=== PATIENT | female | born 1980 | race Two or more races ===

== ENCOUNTER 2022-02-28 10:09 | Emergency (ER) | payer MEDICAID ==
[~2022-02-28] VITALS: Ht 175.3 cm; Wt 86.2 kg
[2022-02-28] MEDS ORDERED: ONDANSETRON HCL/PF 4 MG/2 ML VIAL IVP ONE (10:30)
[2022-02-28] MEDS ORDERED: HYDROMORPHONE INJ 2 MG/ML DISP.SYRIN IV ONE (10:30)
[2022-02-28] MEDS ORDERED: PANTOPRAZOLE 40 MG VIAL IV ONE (10:30)
[2022-02-28] MEDS ORDERED: IV NS 0.9% 1,000 ML BAG IV ONE (10:30)
[2022-02-28] MEDS ORDERED: ONDANSETRON HCL/PF 4 MG/2 ML VIAL ONE (10:44)
[2022-02-28] MEDS ORDERED: HYDROMORPHONE 1 MG/1 ML DISP.SYRIN ONE (10:44)
[2022-02-28] MEDS ORDERED: PANTOPRAZOLE 40 MG VIAL ONE (10:44)
--- NOTE | 2022-02-28 10:45 | NUR ---
RECEVED PT 41YRS FEMALE CAME BY BLAYNE C/O ABDOMINAL PAIN /WITH N/V AND DIRRHEA SATRTED THIS MORNING AFTER ABDOMIN SOFTE NONE TENDER TO TOUCH
--- NOTE | 2022-02-28 10:50 | NUR ---
SEEN BY DR. LERMA
--- NOTE | 2022-02-28 11:00 | NUR ---
BLOOD DROW BY LAB TACH
[2022-02-28 11:18] LABS: BASOPHILS % (AUTO) 0.1 % (0.0-2.0); EOSINOPHILS % (AUTO) 0.5 % (0.0-6.0); HEMATOCRIT 48 % (33-45); HEMOGLOBIN 15.8 g/dL (11.5-14.8); LYMPHOCYTES # (AUTO) 2.7 K/uL (0.8-4.8); LYMPHOCYTES % (AUTO) 17.2 % (20.0-44.0); MEAN CORPUSCULAR HGB CONC 33 g/dl (31.0-36.0); MEAN CORPUSCULAR VOLUME 87 fL (82-100); MONOCYTES # (AUTO) 0.5 K/uL (0.1-1.30); MONOCYTES % (AUTO) 3.1 % (2.0-12.0); NEUTROPHILS # (AUTO) 12.3 K/uL (1.8-8.9); NEUTROPHILS % (AUTO) 79.1 % (43.0-81.0); PLATELET COUNT (AUTO) 259 K/uL (150-450); RED BLOOD CELL COUNT(AUTO) 5.54 MIL/uL (4.0-5.2); WHITE BLOOD COUNT (AUTO) 15.5 K/uL (4.3-11.0)
[2022-02-28 11:37] LABS: ALBUMIN 3.9 g/dL (3.4-5.0); BILIRUBIN,DIRECT 0.2 mg/dL (0.0-0.2); BILIRUBIN,TOTAL 0.6 mg/dL (0.2-1.0); CALCIUM, SERUM 8.9 mg/dL (8.5-10.1); CREATININE 0.7 mg/dL (0.6-1.3); TOTAL PROTEIN, SERUM 7.7 g/dL (6.4-8.2)
[2022-02-28 11:46] LABS: POTASSIUM 3.4 mmol/L (3.5-5.1)
--- NOTE | 2022-02-28 13:00 | NUR ---
PT UNABLE TO VOIDE AND REFUSED I&O CATHETER SING WAVER
--- NOTE | 2022-02-28 13:03 | NUR ---
PT TO CT VIA GRACIE
[2022-02-28] MEDS ORDERED: AMOX-430 PO ×2 (13:54→14:06)
[2022-02-28] MEDS ORDERED: HYDR-3972 PO ×2 (13:54→14:06)
[2022-02-28 14:10] VITALS: BP 120/70
--- NOTE | 2022-02-28 14:10 | NUR ---
Patient discharged to home in stable condition. Written and verbal after care instructions given. Patient verbalizes understanding of instruction. IV removed. Catheter intact and site benign. Pressure and 4x4 applied to site. No bleeding noted.
== END 2022-02-28 14:11 | disposition home or self-care (01) ==
LOC: ER 10:13
DX: K52.9 Noninfective gastroenteritis and colitis, unspecified (principal); Z79.899 Other long term (current) drug therapy
CPT/HCPCS: 99285; 74176; 96374; 71045; 96375; 96361; 93005; 85025; 80048; 83690; 80076; 36415; 85730; 84702; J2405; J7030; C9113; J1170